=== PATIENT | female | born 1985 | race Caucasian/White ===

== ENCOUNTER 2019-09-17 02:49 | Observation (INO) | payer OTHER ==
[~2019-09-17] VITALS: Ht 167.6 cm; Wt 121.9 kg
[2019-09-17] MEDS ORDERED: ONDANSETRON ODT 4 MG ONE (03:18)
[2019-09-17] MEDS ORDERED: MAALOX/HYOSCYAMINE/LIDOCAINE 45 ML BTL ONE (03:19)
[2019-09-17] MEDS ORDERED: MAALOX/HYOSCYAMINE/LIDOCAINE 45 ML BTL PO ONE (03:30)
[2019-09-17] MEDS ORDERED: ONDANSETRON ODT 4 MG PO ONE (03:30)
[2019-09-17 03:41] LABS: BASOPHILS # (AUTO) 0.03 x10^3/uL (0-0.1); BASOPHILS % (AUTO) 0 % (0-1); EOSINOPHILS # (AUTO) 0.21 x10^3/uL (0-0.4); EOSINOPHILS % (AUTO) 3 % (1-7); LYMPHOCYTES # (AUTO) 2.35 x10^3/uL (1-3.4); LYMPHOCYTES % (AUTO) 28 % (22-44); MD NO; MEAN CORPUSCULAR HEMOGLOBIN 28.6 pg (27.0-34.8); MEAN CORPUSCULAR HGB CONC 32.5 g/dL (32.4-35.8); MEAN PLATELET VOLUME 7.8 fL (7.4-10.4); MONOCYTES % (AUTO) 6 % (2-9); NEUTROPHILS # (AUTO) 5.29 x10^3/uL (1.8-6.8); NEUTROPHILS % (AUTO) 63 % (42-75); PLATELET COUNT 343 x10^3/uL (130-400); RED BLOOD COUNT 4.49 x10^6/uL (3.82-5.3); RED CELL DISTRIBUTION WIDTH 13.7 % (9.6-15.2)
[2019-09-17 03:42] LABS: ALANINE AMINOTRANSFERASE 37 U/L (12-78); ALBUMIN 3.6 g/dL (3.4-5.0); ANION GAP 9 mmol/L (5-15); CALCIUM 8.7 mg/dL (8.5-10.1); CHLORIDE 111 mmol/L (98-107)
[2019-09-17 03:47] LABS: ALKALINE PHOSPHATASE 100 U/L (45-117); BILIRUBIN,TOTAL 0.2 mg/dL (0.2-1.0); CREATININE 1.03 mg/dL (0.55-1.02); TOTAL PROTEIN 7.2 g/dL (6.4-8.2)
[2019-09-17] MEDS ORDERED: HYDROcodone/APAP 5/325 TABLET ONE (04:19)
[2019-09-17] MEDS ORDERED: OXYcodone/APAP 5/325MG TABLET ONE (04:24)
--- NOTE | 2019-09-17 04:25 | NUR ---
PT REPORTS PAIN IS BACK AND WORSE. REPORTED TO PROVIDER FOR PAIN MED ORDER.
--- NOTE | 2019-09-17 04:32 | NUR ---
PT TAKEN TO ULTRASOUND.
[2019-09-17] MEDS ORDERED: OXYcodone/APAP 5/325MG TABLET PO ONE (05:00)
[2019-09-17] MEDS ORDERED: SODIUM CHLORIDE 0.9% 1,000 ML IV ONE ×2 (05:56→08:00)
--- NOTE | 2019-09-17 06:43 | NUR ---
RAPID COVID SAMPLE SENT TO LAB.
--- NOTE | 2019-09-17 06:52 | NUR ---
REPORT GIVEN TO ARELIS YANEZ.
--- NOTE | 2019-09-17 07:57 | NUR ---
PT RESTING CALMLY IN BED. NO STATED NEED AT THIS TIME. PT REMOVED O2 SAT MONITOR, STATED SHE IS ALLERGIC TO THE ADHESIVE. PT HAS ROOM ASSIGNED. WILL CONTINUE TO MONITOR.
--- NOTE | 2019-09-17 08:13 | NUR ---
report to Natty YANEZ
[2019-09-17] MEDS ORDERED: SODIUM CHLORIDE FLUSH 10ML SYR IVF PRN (08:30)
[2019-09-17 08:49] VITALS: BP 115/75
[2019-09-17] MEDS ORDERED: Birth Control (09:22)
[2019-09-17] MEDS ORDERED: FLUO20TA25 PO (09:22)
[2019-09-17] MEDS ORDERED: ONDANSETRON 2MG/ML, 2ML IV PRN (09:30)
[2019-09-17] MEDS ORDERED: [UNRECOGNIZED DRUG - REMARK] MC SCH (09:30)
[2019-09-17] MEDS ORDERED: INDOCYANINE GREEN 25 MG VIAL IV ONE (10:00)
[2019-09-17] MEDS ORDERED: ACETAMINOPHEN 325 MG TABLET PO PRN ×2 (12:00→20:30)
[2019-09-17 13:39] VITALS: BP 112/75
[2019-09-17] MEDS ORDERED: INDOCYANINE GREEN 25 MG VIAL ONE (14:09)
[2019-09-17] MEDS ORDERED: BUPIVACAINE/EPI 0.5% 1:200K ONE (14:09)
[2019-09-17] MEDS: D5%-0.45% NACL 1,000 ML IV SCH ×2 (14:58→22:00)
[2019-09-17] MEDS ORDERED: MIDAZOLAM 1 MG/ML, 2ML ONE (19:38)
[2019-09-17] MEDS ORDERED: FENTANYL PF 250 MCG/5ML ONE (19:39)
[2019-09-17] MEDS ORDERED: ALBUTEROL SULFATE 2.5 MG/3 ML NPPB PRN (20:30)
[2019-09-17] MEDS ORDERED: LORazepam 2 MG/ML, 1ML IVPush PRN (20:30)
[2019-09-17] MEDS ORDERED: PROMETHAZINE 25 MG/ML, 1ML IVPush PRN (20:30)
[2019-09-17] MEDS ORDERED: LABETALOL 5MG/ML, 20ML IV PRN (20:30)
[2019-09-17] MEDS ORDERED: hydrALAzine 20 MG/ML, 1ML IV PRN (20:30)
[2019-09-17] MEDS ORDERED: OXYcodone 5 MG/5 ML ORAL.SOL UDC PO PRN (20:30)
[2019-09-17] MEDS ORDERED: HYDROmorphone 1 MG/ML, 1ML INJ IVPush PRN (20:30)
[2019-09-17] MEDS ORDERED: MEPERIDINE/PF 25MG/0.5ML IVPush PRN (20:30)
[2019-09-17] MEDS ORDERED: DIPHENHYDRAMINE 50 MG/ML, 1ML IVPush PRN ×2 (20:30→23:30)
[2019-09-17] MEDS ORDERED: CEFOTETAN 1 GM ONE (20:33)
[2019-09-17] MEDS ORDERED: SUGAMMADEX 200 MG/2 ML IVPush ONE (20:33)
[2019-09-17] MEDS ORDERED: KETOROLAC 30 MG/1 ML ONE (20:33)
[2019-09-17] MEDS ORDERED: LIDOCAINE-MPF 2% ,5ML ONE (20:33)
[2019-09-17] MEDS ORDERED: BUPIVACAINE/EPI 0.5% 1:200K INFIL ONE (21:09)
[2019-09-17] MEDS ORDERED: GLYCOPYRROLATE 0.2MG/1ML, 5ML ONE (21:22)
[2019-09-17] MEDS ORDERED: DEXAMETHASONE 4 MG/ML, 1ML ONE (21:22)
[2019-09-17] MEDS ORDERED: PROPOFOL 10 MG/ML, 20ML ONE (21:22)
[2019-09-17] MEDS ORDERED: SUCCINYLCHOLINE 20 MG/ML, 10ML ONE (21:22)
[2019-09-17] MEDS ORDERED: ROCURONIUM 10MG/ML,5ML ONE (21:22)
[2019-09-17] MEDS ORDERED: NEOSTIGMINE 1 MG/ML, 10ML ONE (21:22)
[2019-09-17] MEDS ORDERED: ONDANSETRON 2MG/ML, 2ML ONE (21:22)
[2019-09-17] MEDS ORDERED: ACETAMINOPHEN 650 MG/20.3 ML UDC ONE (21:58)
[2019-09-17] MEDS ORDERED: OXYcodone 5 MG/5 ML ORAL.SOL UDC ONE ×2 (21:58→22:08)
[2019-09-17] MEDS ORDERED: FENTANYL PF 100 MCG/2ML ONE (22:08)
[2019-09-17] MEDS: FENTANYL PF 100 MCG/2ML IV PRN ×2 (22:10→22:15)
[2019-09-17] MEDS ORDERED: MEPERIDINE/PF 25MG/ML,1ML ONE (22:37)
[2019-09-17] MEDS ORDERED: LORazepam 2 MG/ML, 1ML ONE (22:45)
[2019-09-17] MEDS ORDERED: LACTATED RINGERS 1,000 ML IV SCH (23:30)
[2019-09-17] MEDS ORDERED: ONDANSETRON 2MG/ML, 2ML IVPush PRN (23:30)
[2019-09-17] MEDS ORDERED: OXYC5TAB2 PO (23:33)
[2019-09-17] MEDS ORDERED: ONDA8TAB9 PO (23:34)
[2019-09-17 23:51] VITALS: BP 121/78
[2019-09-18] MEDS: OXYcodone 5 MG/5 ML ORAL.SOL UDC PO PRN ×3 (02:04→09:16)
[2019-09-18] MEDS: KETOROLAC 30 MG/1 ML IV PRN ×2 (02:31→09:15)
[2019-09-18 03:52] VITALS: BP 120/80
[2019-09-18 07:30] VITALS: BP 121/81
[2019-09-18 09:35] VITALS: BP 115/79
== END 2019-09-18 10:05 | disposition home or self-care (01) ==
LOC: ED 03:28 → INTOOBSV 08:05 → 4NE 08:05 → DCLOUNGE 09-18 10:00
PROVIDERS: ADMIT Surgery; ATTEND Surgery
DX: Z03.818 Encounter for observation for suspected exposure to other biological agents ruled out (principal); K80.00 Calculus of gallbladder with acute cholecystitis without obstruction; R11.2 Nausea with vomiting, unspecified; E66.9 Obesity, unspecified; Z87.11 Personal history of peptic ulcer disease
CPT/HCPCS: 36415; 47562; 76700; 80053; 83690; 84703; 85025; 87635; 88304; 96361; 96374; 96375; 96376; 99284; G0378; J0330; J1100; J1885; J2060; J2175; J2250; J2405; J2704; J2710; J3010; J3490; J7030; Q0162